=== PATIENT | female | born 1990 | race African-American/Black ===

== ENCOUNTER 2025-10-21 21:27 | Emergency (ER) | payer MEDICAID ==
[~2025-10-21] VITALS: Ht 162.6 cm; Wt 65.0 kg
[2025-10-21 21:28] VITALS: BP 124/69; PULSE 90; RESP 14; TEMP 100.7; O2SAT 100
[2025-10-21 21:57] LABS: PLATELET COUNT (AUTO) 265 K/uL (150-450); RED BLOOD CELL COUNT(AUTO) 4.43 MIL/uL (4.00-5.20); RED CELL DISTRIBUTION WIDTH 14.1 % (11.5-14.5); WHITE BLOOD COUNT (AUTO) 5.7 K/uL (4.5-11.0)
[2025-10-21 22:04] LABS: CALCIUM, TOTAL 9.1 mg/dL (8.8-10.5); CREATININE 0.73 mg/dL (0.60-1.30); GLOMERULAR FILTR. RATE CALC > 60 mL/min (>60); GLUCOSE,RANDOM 121 mg/dL (70-110); SODIUM SERUM 137 mmol/L (136-145); UREA NITROGEN, BLOOD 5 mg/dL (7-18)
[2025-10-21 22:15] LABS: ASPARTATE AMINOTRANSFERASE 18 U/L (15-37); HCG,QUANTITATIVE < 1 mIU/mL (0-6); TOTAL PROTEIN, SERUM 8.0 g/dL (6.4-8.2)
[2025-10-21 22:21] LABS: APPEARANCE,URINE CLEAR (CLEAR); GLUCOSE, URINE (UA) NEGATIVE (NEGATIVE); LEUKOCYTE ESTERASE ,URINE NEGATIVE (NEGATIVE); NITRATE,URINE NEGATIVE (NEGATIVE); OCCULT BLOOD,URINE NEGATIVE (NEGATIVE); SPECIFIC GRAVITIY, URINE 1.012 (1.003-1.030)
[2025-10-22] MEDS: MAG HYDROX/ALUMINUM HYD/SIMETH ES 30 ML SUSPENSION UDCUP PO ONE (01:28)
[2025-10-22] MEDS: ACETAMINOPHEN 500 MG TABLET PO ONE (01:28)
[2025-10-22] MEDS ORDERED: FAMO20 PO (02:35)
[2025-10-22] MEDS: KETOROLAC TROMETHAMINE 30 MG/ML VIAL IM ONE (02:42)
[2025-10-22] MEDS: DICYCLOMINE HCL 10 MG CAPSULE PO ONE (02:42)
== END 2025-10-22 03:48 | disposition home or self-care (01) ==
LOC: EMS 21:27
DX: K21.9 Gastro-esophageal reflux disease without esophagitis (principal); R10.20 Pelvic and perineal pain unspecified side
CPT/HCPCS: 99284; 80048; 80076; 81003; 83690; 84702; 85025; 36415; 71045; 96372; J1885